=== PATIENT | male | born 1975 ===

== ENCOUNTER 2018-05-12 08:50 | Outpatient (CLI) | payer OTHER | END 2018-05-12 08:53 | disposition home or self-care (01) | LOC: SONOGRAMA 08:50 | DX: R10.11 Right upper quadrant pain (principal) ==

== ENCOUNTER 2018-05-12 10:22 | Outpatient (CLI) | payer OTHER | END 2018-05-12 10:30 | disposition home or self-care (01) | LOC: LAB 10:22 | DX: I10 Essential (primary) hypertension (principal); E78.00 Pure hypercholesterolemia, unspecified ==